=== PATIENT | male | born 1995 | race Caucasian/White ===

== ENCOUNTER 2017-11-27 20:17 | Emergency (ER) | payer SELFPAY ==
[2017-11-27 21:06] LABS: ABS Basophils 0.1 10^3/ul (0-0.2); ABS Eosinophils 0.5 10^3/ul (0-0.6); ABS Lymphocytes 2.4 10^3/ul (1.0-4.8); ABS Neutrophils 6.9 10^3/ul (1.5-7.7); ABS Nucleated RBC 0 10^3/ul; Eosinophil % 4.3 % (0-6); Hematocrit 46 % (42-52); Hemoglobin 15.9 g/dl (14.0-18.0); Lymphocyte % 22.3 % (25-47); Mean Corpuscular HGB Conc 35 g/dl (31-36); Mean Corpuscular Hemoglobin 29 pg (27-31); Mean Corpuscular Volume 82 fL (80-94); Mean Platelet Volume 8.3 um3 (7.4-10.4); Nucleated Red Blood Cells % 0; Platelet Count 186 10^3/ul (150-450); Red Cell Distribution Width 14 % (10.5-15); White Blood Count 10.9 10^3/ul (3.5-10.8)
[2017-11-27 21:07] LABS: Urine Appearance Cloudy; Urine Blood Negative (Negative); Urine Color Yellow; Urine Ketones Negative (Negative); Urine Protein Negative (Negative); Urine Specific Gravity 1.024 (1.010-1.030); Urine Urobilinogen Negative (Negative)
[2017-11-27 21:28] LABS: EGFR Non-African American 82.8 (>60)
[2017-11-28 00:09] VITALS: BP 142/79
--- NOTE | 2017-11-28 00:40 | ED ---
Bailey Curtis Thomas, scribed for Triston Bolton MD on 11/27/17 at 2049 . Psychiatric Complaint - HPI Summary HPI Summary: The patient is a 22 year old male who was brought in 941 after he texted his friends and posted on [employer] that I wonder if a gun make any noise if no one is around to hear it. He reports posting this due to difficulties in his relationship. He is not on any medication, and he denies a psychiatric history. He has two guns at home. - History Of Current Complaint Chief Complaint: EDMentalHealth Time Seen by Provider: 11/27/17 20:33 Hx Obtained From: Patient Onset/Duration: Still Present Severity Initially: Mild Severity Currently: Mild Aggravating Factor(s): Other - Relationship difficulties Alleviating Factor(s): Nothing Associated Signs And Symptoms: Positive: Negative Related History: Negative For: Prior Psychiatric Issues Recent Stressor(s): Relationship difficulties - Allergies/Home Medications Allergies/Adverse Reactions: Allergies Allergy/AdvReac Type Severity Reaction Status Date / Time No Known Allergies Allergy Verified 04/22/14 20:05 Home Medications: Home Medications NK [No Home Medications Reported] 11/27/17 [History Confirmed 11/27/17] PMH/Surg Hx/FS Hx/Imm Hx Sensory History: Denies: Hx Vision Problem Opthamlomology History: Denies: Hx Legally Blind EENT History: Denies: Hx Deafness Psychiatric History: Denies: Hx Depression Infectious Disease History: No Infectious Disease History: Denies: Traveled Outside the [place] in Last 30 Days - Family History Known Family History: Positive: Other - Patient denies relevvant FHx - Social History Lives: With Family Alcohol Use: Occasionally Substance Use Type: Reports: None Hx Tobacco Use: Yes Smoking Status (MU): Current Every Day Smoker Review of Systems Negative: Fever Positive: Other - Possible suicidal gestures All Other Systems Reviewed And Are Negative: Yes Physical Exam - Summary Physical Exam Summary: VITAL SIGNS: Reviewed. GENERAL: Patient is a well-developed and nourished male who is lying comfortable in the stretcher. Patient is not in any acute respiratory distress. HEAD AND FACE: No signs of trauma. No ecchymosis, hematomas or skull depressions. No sinus tenderness. EYES: PERRLA, EOMI x 2, No injected conjunctiva, no nystagmus. EARS: Hearing grossly intact. Ear canals and tympanic membranes are within normal limits. MOUTH: Oropharynx within normal limits. NECK: Supple, trachea is midline, no adenopathy, no JVD, no carotid bruit, no c- spine tenderness, neck with full ROM. CHEST: Symmetric, no tenderness at palpation LUNGS: Clear to auscultation bilaterally. No wheezing or crackles. CVS: Regular rate and rhythm, S1 and S2 present, no murmurs or gallops appreciated. ABDOMEN: Soft, non-tender. No signs of distention. No rebound no guarding, and no masses palpated. Bowel sounds are normal. EXTREMITIES: FROM in all major joints, no edema, no cyanosis or clubbing. NEURO: Alert and oriented x 3. No acute neurological deficits. Speech is normal and follows commands. SKIN: Dry and warm PSYCHIATRIC: He is cooperative. Triage Information Reviewed: Yes Vital Signs On Initial Exam: Initial Vitals Temp Pulse Resp BP Pulse Ox 96.9 F 84 16 129/75 99 11/27/17 20:20 11/27/17 20:20 11/27/17 20:20 11/27/17 20:20 11/27/17 20:20 Vital Signs Reviewed: Yes Diagnostics - Vital Signs Vital Signs Temp Pulse Resp BP Pulse Ox 11/27/17 20:20 96.9 F 84 16 129/75 99 - Laboratory Result Diagrams: 11/27/17 20:50 11/27/17 20:50 Lab Statement: Any lab studies that have been ordered have been reviewed, and results considered in the medical decision making process. Course/Dx - Course Assessment/Plan: The patient is a 22 year old male who was brought in 941 after he texted his friends and posted on [employer] that I wonder if a gun make any noise if no one is around to hear it. The patient has two guns at home. He reports posting this due to difficulties in his relationship. Bloodwork was obtained. The patient was seen by the mental health evalutors. According to the mental health evaluators and the psychiatrist donor floor technician Dr. Rebolledo, the patient will give the gun to his friend. The lombardi developer and the court will decide whether or not the patient can have the gun. So therefore, the patient will not have the gun tonight. - Differential Dx/Clinical Impression Provider Diagnosis: Adjustment disorder - Physician Notifications Discussed Care Of Patient With: Rupesh Rebolledo Time Discussed With Above Provider: 22:32 Instructed by Provider To: Other - Dr. Rebolledo, psychiatry, recommends discharge home with diagnosis of adjustment disorder. Dr. Rebolledo would like the patients guns to be confiscated via the SAFE Act. Discharge - Sign-Out/Discharge Documenting (check all that apply): Discharge/Admit/Transfer - Discharge Plan Condition: Stable Disposition: HOME Patient Education Materials: Mood Disorders (ED) Referrals: No Primary Care Phys,NOPCP [Primary Care Provider] - The documentation as recorded by the Bailey alegre Thomas accurately reflects the service I personally performed and the decisions made by me, Triston Bolton MD.
== END 2017-11-28 00:08 | disposition home or self-care (01) ==
LOC: ED 20:17
DX: F43.20 Adjustment disorder, unspecified (principal); F17.210 Nicotine dependence, cigarettes, uncomplicated
CPT/HCPCS: 36415; 80053; 80307; 80320; 80329; 81003; 84443; 85025; 99285; G0480

== ENCOUNTER → 2018-07-17 16:49 | Emergency (ER) | payer SELFPAY ==
--- NOTE | 2018-07-17 17:12 | ED ---
Upper Extremity Pain - HPI Summary HPI Summary: [id number] patient presents with left hand pain status post punching a hard surface. He reports most of his pain over the third MCP joint and into the finger here. 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 Denies numbness, tingling, weakness. No use of anticoagulants. Took 600 mg of ibuprofen prior to arrival. He is currently icing and elevating his hand in the fast track. - History of Current Complaint Chief Complaint: EDExtremityUpper Stated Complaint: LT HAND INJURY Time Seen by Provider: 07/17/18 17:08 Hx Obtained From: Patient, Family/Sales Recruitment Specialist - female service cleaner - Allergies/Home Medications Allergies/Adverse Reactions: Allergies Allergy/AdvReac Type Severity Reaction Status Date / Time No Known Allergies Allergy Verified 04/22/14 20:05 PMH/Surg Hx/FS Hx/Imm Hx Previously Healthy: Yes Endocrine/Hematology History: Denies: Hx Anticoagulant Therapy, Hx Blood Disorders Sensory History: Denies: Hx Legally Blind, Hx Vision Problem, Hx Deafness Opthamlomology History: Denies: Hx Legally Blind, Hx Vision Problem Psychiatric History: Denies: Hx Eating Disorder, Hx Depression Infectious Disease History: No Infectious Disease History: Denies: Traveled Outside the [place] in Last 30 Days - Family History Known Family History: Positive: None - Social History Occupation: Employed Full-time - student teacher Lives: With Family Alcohol Use: Occasionally Substance Use Type: Reports: Marijuana Hx Tobacco Use: Yes - not currnetly Smoking Status (MU): Former Smoker Review of Systems Positive: no symptoms reported Positive: Arthralgia, Decreased ROM - d/t pain Skin: Negative Neurological: Negative Psychological: Normal All Other Systems Reviewed And Are Negative: Yes Physical Exam Triage Information Reviewed: Yes Vital Signs On Initial Exam: Initial Vitals Temp Pulse Resp BP Pulse Ox 98.6 F 94 18 148/57 99 07/17/18 16:51 07/17/18 16:51 07/17/18 16:51 07/17/18 16:51 07/17/18 16:51 Vital Signs Reviewed: Yes Appearance: Positive: Well-Appearing, Well-Nourished, Pain Distress - mild Skin: Positive: Warm, Skin Color Reflects Adequate Perfusion, Dry - no ecchymosis, no skin breakdown/bleeding Head/Face: Positive: Normal Head/Face Inspection Eyes: Positive: EOMI ENT: Positive: Hearing grossly normal Respiratory/Lung Sounds: Positive: Breath Sounds Present Cardiovascular: Positive: Pulses are Symmetrical in both Upper and Lower Extremities - cap refill < 2 secs, radial pulse + 2 Musculoskeletal: Positive: Strength/ROM Intact - wrist, Limited @ - Lt 3rd MCP d /t pain - no gross deformity, Pain @ - Lt 3rd MCP Neurological: Positive: Normal, Alert, Oriented to Person Place, Time, CN Intact II-III. Negative: Sensory/Motor Intact - motor intact - reports decreases sensation of 3rd phalange but sensation is still present Psychiatric: Positive: Normal Diagnostics - Vital Signs Vital Signs Temp Pulse Resp BP Pulse Ox 07/17/18 16:51 98.6 F 94 18 148/57 99 - Laboratory Lab Statement: Any lab studies that have been ordered have been reviewed, and results considered in the medical decision making process. Course/Dx - Course Course Of Treatment: Signed out to David Mendoza PA-C pending XR results. Stable at time of transition of care - Diagnoses Provider Diagnoses: Left hand pain Discharge - Sign-Out/Discharge Documenting (check all that apply): Sign-Out Patient Signing out patient TO: David Mendoza - Discharge Plan Condition: Stable - Billing Disposition and Condition Condition: STABLE
--- NOTE | 2018-07-17 18:07 | PN ---
Progress Note - Progress Note Date of Service: 07/17/18 Note: Patient signed out to me pending x-ray results of left hand after punching wall. Vital signs within normal limits. X-ray negative for acute fracture or dislocation. Patient's hand aced wrapped. Discharged home in stable condition.
[2018-07-17 18:33] VITALS: BP 116/60
== END | disposition home or self-care (01) ==
LOC: ED 16:49
DX: M79.642 Pain in left hand (principal); Z87.891 Personal history of nicotine dependence; W22.09XA Striking against other stationary object, initial encounter; Y92.9 Unspecified place or not applicable
CPT/HCPCS: 99282